=== PATIENT | female | born 1950 | race Caucasian/White ===

== ENCOUNTER 2025-04-18 12:38 | Outpatient (CLI) | payer MEDICARE, SELFPAY ==
--- NOTE | ~2025-04-18 | NM_ITS ---
EXAMINATION: JALIL hameed renal scan DATE: 04/18/2025 13:54 INDICATION: Renal cyst TECHNIQUE: 7.9 mCi Tc-99m MAG3 was administered IV. 40 mg furosemide was administered IV 10 minutes afterward. The patient was scanned in the supine position. A posterior abdominal radionuclide angiogram was obtained. A subsequent time course of static images of the kidneys, ureters, and bladder was obtained. COMPARISON: None FINDINGS: The posterior abdominal radionuclide angiogram and sequential static images show normal size, position, and morphology of the kidneys. Peak renal parenchymal uptake was 3.4 min in left kidney and 7.4 min in right kidney (normal peak 3-5 minutes). The relative early renal uptake was 68% on the left and 32% on the right (<40% is abnormal). No abnormalities of the ureters or bladder are seen. T1/2 for clearance of activity from the left kidney and proximal collecting system was 6 minutes. T1/2 for clearance of activity from the right kidney and proximal collecting system was 9 minutes. Notes on interpretation: T1/2 <10 minutes is normal, 10-15 minutes is low grade obstruction of questionable clinical significance, 15-20 minutes is partial obstruction that is likely clinically significant, >20 minutes is high grade obstruction. Note that false positives may be seen with supine positioning, dehydration, severely dilated nonobstructed kidney, atonic collecting system, poor renal function, and chronic furosemide use. IMPRESSION: 1. Asymmetric renal function with the left kidney contributing 68% to total renal function and the right kidney 32%. 2. No delay in contrast clearance from either kidney to suggest fixed obstruction. Reviewed, dictated and finalized at location A. IMPRESSION: 1. Asymmetric renal function with the left kidney contributing 68% to total re nal function and the right kidney 32%. 2. No delay in contrast clearance from either kidney to suggest fixed obstruct ion.
== END 2025-04-18 12:39 | disposition home or self-care (01) ==
PROVIDERS: PCP Internal Medicine; Visit Provider Urology
DX: N28.1 Cyst of kidney, acquired (principal)
CPT/HCPCS: 78708; A9562; J1938